=== PATIENT | female | born 1970 | race Caucasian/White ===

== ENCOUNTER → 2018-02-05 | Outpatient (CLI) | payer BC ==
--- NOTE | 2018-02-05 17:58 | Diagnostic Imaging Report ---
PROCEDURE:X-RAY MODIFIED BARIUM SWALLOW COMPARISON:None. INDICATIONS:THROAT CANCER, TROUBLE SWALLOWING THICK FOODS, GERD DISCUSSION:Fluoroscopic examination was performed in conjunction with speech pathology, during swallowing of a variety of thin and thick liquid consistencies. CONCLUSION:No penetration or aspiration. Please see the report from speech pathology for complete details. Dictated by: Usman Longoria M.D. on 02/05/2018 at 18:01 Electronically approved by: Usman Longoria M.D. on 02/05/2018 at 18:01
== END ==
LOC: DX 09:41
PROVIDERS: ATTEND Otolaryngology
DX: R05 Cough (principal); R49.0 Dysphonia
CPT/HCPCS: 74230

== ENCOUNTER → 2018-04-14 | Day surgery (SDC) | payer BC ==
[2018-04-10 11:25] LABS: BASOPHILS # (AUTO) 0.1 (0.0-0.1); BASOPHILS % 0.8 % (0.0-1.0); EOSINOPHILS # (AUTO) 0.1 (0.0-0.4); EOSINOPHILS % 1.1 % (0.0-6.0); HEMATOCRIT 42.1 % (34.2-44.1); HEMOGLOBIN 13.7 g/dL (12.0-16.0); LYMPHOCYTES # (AUTO) 4.3 (1.0-3.2); MEAN CORPUSCULAR HEMOGLOBIN 31.5 pg (28-32); MEAN CORPUSCULAR HGB CONC 32.5 g/dL (31-35); MEAN CORPUSCULAR VOLUME 96.8 fL (81-99); MONOCYTES # (AUTO) 1.3 (0.2-0.8); MONOCYTES % 10.7 % (4.4-11.3); NEUTROPHILS # (AUTO) 5.8 (2.1-6.9); PLATELET COUNT 364 x10e3/uL (140-360); RED BLOOD COUNT 4.35 x10e6/uL (3.6-5.1); RED CELL DISTRIBUTION WIDTH 15.8 % (11.7-14.4)
--- NOTE | 2018-04-10 11:57 | Diagnostic Imaging Report ---
PROCEDURE: Frontal and lateral views of the chest. COMPARISON: None. INDICATIONS: PREOPERATIVE CHEST XRAY FOR VOCAL CHORD BIOPSY FINDINGS: Lines/tubes: None. Lungs: The lungs are well inflated to. 6 mm nodular density projecting in the right lower lung on the frontal view. There is no evidence of consolidation or pulmonary edema. Pleura: There is no pleural effusion or pneumothorax. Heart and mediastinum: Cardiac silhouette is unremarkable. Pulmonary vasculature is normal. Bones: No acute bony abnormality. Multiple old healed left rib fractures. IMPRESSION: 1. No acute cardiopulmonary abnormalities. 2. 6 mm nodular density projecting in the right lower lung on the frontal view. Recommend chest CT for further evaluation. Michael Frazier M.D. Dictated by: Michael Frazier M.D. on 04/10/2018 at 12:02 Electronically approved by: Michael Frazier M.D. on 04/10/2018 at 12:02
[~2018-04-14] MED LIST: BUSPIRONE PO; DESFLURANE 240 ML BTL INH ONE; DEXAMETHASONE SOD PHOS INJ 4 MG/ML VIAL ONE; DIAZEPAM5 MG PO; FENTANYL CITRATE/PF 100MCG/2 ML INJ ONE; LEXAPRO20 MG PO; LIDOCAINE HCL 2% LOCAL INJ 5 ML SDV VIAL INJ ONE; MIDAZOLAM HCL 2 MG/2 ML VIAL ONE; ONDANSETRON HCL INJ 2 MG/ML VIAL ONE; OXYMETAZOLINE HCL 0.05% NAS 1 SPRAY BTL ONE; PROPOFOL IV EMULSION 10 MG/ML 20 ML VIAL ONE; SUCCINYLCHOLINE 200 MG/10 ML SYR ONE
--- NOTE | 2018-04-14 12:56 | Operative Report ---
DATE OF PROCEDURE: April 14, 2018 PREOPERATIVE DIAGNOSIS: Right true vocal cord mass. POSTOPERATIVE DIAGNOSIS: Right true vocal cord mass. PROCEDURE: Direct operative laryngoscopy, suspension microlaryngoscopy with operating microscope, excision of right true vocal cord mass. SIGNIFICANT FINDINGS: Soft tissue mass on the superior lateral aspect of the right true vocal cord mucosa at junction with ventricle. The character of the mass appeared to be diffuse edematous mucosa. LEGAL DOCUMENT ASSISTANT: None. ANESTHESIA: General endotracheal tube anesthesia. SPECIMENS REMOVED: The right true vocal cord mass. ESTIMATED BLOOD LOSS: Less than 1 mL. COMPLICATIONS: None. INDICATIONS: Patient is a 47-year-old white female with 8 months' history of dysphagia, cough, sore throat, odynophagia, globus sensation, postnasal drip, throat clearing, hoarseness, dyspnea and fever. She reports a 50-pound weight loss due to dysphagia? There are no neck masses noted by the patient. She has been a heavy smoker until December of 2017 when she quit. 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 Modified barium swallow testing was normal. Flexible fiberoptic nasal laryngoscopy revealed a mass on the superior surface of the right true vocal cord mucosa. She is scheduled for direct operative laryngoscopy, suspension microlaryngoscopy with operating microscope and excision of right true vocal cord mass under general anesthesia. Risks and complications of the procedure were thoroughly discussed with patient and they include infection, bleeding, scarring, failure to improve, need for additional operations, damage to the gums, tongue, lips and teeth, permanent worse voice, chronic pain, damage to the intraoral and throat structures, need for blood transfusions, damage to surrounding nerves, blood vessels and muscles, possibility of malignancy and need for further treatment. She fully understands and gives consent. PROCEDURE: Patient was taken to the operating room and placed supine on the operating table where general anesthesia was achieved through orotracheal intubation. The patient is edentulous in the upper teeth but she has teeth on the lower teeth. Moistened gauze was placed over the upper gingiva. The Kike laryngoscope was then used to visualize the intraoral structures which appeared to be free of any tumors or masses. Further inspection of the epiglottis, the vallecula, base of tongue also revealed normal findings. The hypopharynx and larynx were visualized. Hypopharynx appeared to be normal. The larynx was then visualized and the Kike laryngoscope was then placed in suspension on De Leon stand. The left true vocal cord appeared to be normal. There was a soft tissue mass on the superior lateral aspect of the right true vocal cord mucosa at the junction with the ventricle. The character of the mass appeared to be edematous mucosa. This was excised at its base with Bellucci scissors and sent for permanent section analysis. Hemostasis was obtained with cottonoid pledgets soaked with Afrin. Following removal of the cottonoid pledgets, further inspection of the larynx revealed to be clear with no evidence of masses, ulcers or tumors. The Kike laryngoscope was then taken out of suspension and was removed without difficulty revealing no trauma to the teeth on the lower aspect or the gingiva in the upper aspect. Patient was awakened in the operating room, extubated and taken to recovery in good condition. Job#: [id number] MILLA DUGAN
== END | disposition home or self-care (01) ==
LOC: OR 09:30
PROVIDERS: ATTEND Otolaryngology
DX: J35.8 Other chronic diseases of tonsils and adenoids (principal); R63.4 Abnormal weight loss; R13.10 Dysphagia, unspecified; J44.9 Chronic obstructive pulmonary disease, unspecified; K21.9 Gastro-esophageal reflux disease without esophagitis; F32.9 Major depressive disorder, single episode, unspecified; F41.9 Anxiety disorder, unspecified; Z01.810 Encounter for preprocedural cardiovascular examination; Z01.812 Encounter for preprocedural laboratory examination; Z01.818 Encounter for other preprocedural examination; Z87.891 Personal history of nicotine dependence
CPT/HCPCS: 31541; 36415; 71046; 81025; 85025; 88305; 93005; J1100; J2001; J2250; J2405

== ENCOUNTER 2019-11-06 16:22 | Emergency (ER) | payer BC, OTHER ==
[~2019-11-06] VITALS: Ht 175.3 cm; Wt 78.9 kg
[~2019-11-06 16:22] MED LIST changes: -DESFLURANE 240 ML BTL INH ONE; -DEXAMETHASONE SOD PHOS INJ 4 MG/ML VIAL ONE; -FENTANYL CITRATE/PF 100MCG/2 ML INJ ONE; -LIDOCAINE HCL 2% LOCAL INJ 5 ML SDV VIAL INJ ONE; -MIDAZOLAM HCL 2 MG/2 ML VIAL ONE; -ONDANSETRON HCL INJ 2 MG/ML VIAL ONE; -OXYMETAZOLINE HCL 0.05% NAS 1 SPRAY BTL ONE; -PROPOFOL IV EMULSION 10 MG/ML 20 ML VIAL ONE; -SUCCINYLCHOLINE 200 MG/10 ML SYR ONE
[2019-11-06] MEDS ORDERED: FUROSEMIDE40 MG PO (17:01)
[2019-11-06] MEDS ORDERED: SODIUM CHLORIDE 0.9% 1000ML 1,000 ML IV STA (17:34)
[2019-11-06] MEDS ORDERED: ONDANSETRON HCL INJ 2MG/ML 2ML 2 MG/ML VIAL IV STA (17:34)
[2019-11-06] MEDS ORDERED: PANTOPRAZOLE 40 MG 10ML VIAL IV STA (17:34)
[2019-11-06 17:58] LABS: BASOPHILS # (AUTO) 0.1 (0.0-0.1); BASOPHILS % 0.5 % (0.0-1.0); EOSINOPHILS # (AUTO) 0.1 (0.0-0.4); EOSINOPHILS % 0.4 % (0.0-6.0); HEMATOCRIT 41.2 % (34.2-44.1); HEMOGLOBIN 13.8 g/dL (12.0-16.0); LYMPHOCYTES # (AUTO) 4.5 (1.0-3.2); LYMPHOCYTES % 34.2 % (18.0-39.1); MEAN CORPUSCULAR HEMOGLOBIN 32.4 pg (28-32); MEAN CORPUSCULAR HGB CONC 33.5 g/dL (31-35); MEAN CORPUSCULAR VOLUME 96.7 fL (81-99); MONOCYTES # (AUTO) 1.4 (0.2-0.8); MONOCYTES % 10.4 % (4.4-11.3); NEUTROPHILS # (AUTO) 7.1 (2.1-6.9); NEUTROPHILS % 54.2 % (38.7-80.0); PLATELET COUNT 288 x10e3/uL (140-360); RED BLOOD COUNT 4.26 x10e6/uL (3.6-5.1); RED CELL DISTRIBUTION WIDTH 13.5 % (11.7-14.4)
[2019-11-06] MEDS ORDERED: ASPIRIN 81 MG CHEW TAB PO ONE (18:00)
[2019-11-06 18:18] LABS: ALANINE AMINOTRANSFERASE 19 IU/L (0-55); ALBUMIN 3.8 g/dL (3.5-5.0); ALBUMIN/GLOBULIN RATIO 1.4 (0.8-2.0); ALKALINE PHOSPHATASE 60 IU/L (40-150); ANION GAP 10.9 mmol/L (8-16); BLOOD UREA NITROGEN 10 mg/dL (7-26); BUN/CREATININE RATIO 13 (6-25); CALCIUM 10.1 mg/dL (8.4-10.2); CARBON DIOXIDE 27 mmol/L (22-29); CHLORIDE 104 mmol/L (98-107); CREATINE KINASE 35 IU/L (29-168); CREATININE, SERUM 0.76 mg/dL (0.57-1.11); EST GLOMERULAR FILTRATION RATE > 60 ML/MIN (60-); GLUCOSE 86 mg/dL (74-118); POTASSIUM 3.9 mmol/L (3.5-5.1); SODIUM 138 mmol/L (136-145)
[2019-11-06 18:22] LABS: INR 1.05; PROTHROMBIN TIME 14.4 seconds (11.9-14.5)
[2019-11-06 18:23] LABS: PARTIAL THROMBOPLASTIN TIME 25.6 seconds (23.8-35.5)
[2019-11-06 18:54] LABS: COLOR,URINE YELLOW (YELLOW)
[2019-11-06 18:55] LABS: BILIRUBIN,URINE SMALL (NEGATIVE); CLARITY,URINE SL CLOUDY (CLEAR); KETONES,URINE 2+ (NEGATIVE); LEUKOCYTE ESTERASE ,URINE NEGATIVE (NEGATIVE); NITRITE,URINE NEGATIVE (NEGATIVE); PROTEIN,URINE DIPSTICK 3+ (NEGATIVE); URINE UROBILINOGEN 2 mg/dL (0.2 - 1)
--- NOTE | 2019-11-06 18:59 | Diagnostic Imaging Report ---
EXAMINATION: ABDOMEN ACUTE SERIES W/PA CXR INDICATION: ^VOMITING ^[id number] ^[id number]. COMPARISON: None FINDINGS: AP view TUBES and LINES: None. LUNGS: Lungs are well inflated. There is no evidence of pneumonia or pulmonary edema. There is a small right lung base calcified granuloma. PLEURA: No pleural effusion or pneumothorax. HEART AND MEDIASTINUM: The cardiomediastinal silhouette is unremarkable. BONES AND SOFT TISSUES: No acute osseous lesion. Old fracture deformity of the left ribs. Soft tissues are unremarkable. UPPER ABDOMEN: No free air under the diaphragm. IMPRESSION: No acute thoracic abnormality. Signed by: Fritz Walsh MD on 11/06/2019 6:57 PM
[2019-11-06 19:02] LABS: BACTERIA,URINE FEW /HPF; EPITHELIAL CELLS,URINE MODERATE /LPF
[2019-11-06 20:58] LABS: LYMPHOCYTES % (MANUAL) 31 % (19-48); MONOCYTES % (MANUAL) 5 % (3.4-9.0); NEUTROPHILS % (MANUAL) 56 % (40-74); PLATELET ESTIMATE ADEQUATE; PLATELET MORPHOLOGY COMMENT NORMAL; RBC MORPHOLOGY COMMENT NORMAL
[2019-11-06] MEDS ORDERED: HYDROCODONE/APAP 5MG-325MG TAB PO ONE (21:45)
== END 2019-11-06 22:02 | disposition home or self-care (01) ==
LOC: ER 16:22
DX: R10.84 Generalized abdominal pain (principal); R11.2 Nausea with vomiting, unspecified; K58.9 Irritable bowel syndrome, unspecified; F41.9 Anxiety disorder, unspecified
CPT/HCPCS: 36415; 74022; 80053; 81001; 82550; 82553; 83735; 84484; 85025; 85610; 85730; 87086; 93005; 99284; C9113; J2405; J7030

== ENCOUNTER 2024-11-09 10:10 | Observation (INO) | payer OTHER ==
[~2024-11-09] VITALS: Ht 175.3 cm; Wt 58.5 kg
[~2024-11-09 10:10] MED LIST changes: +ASPIRIN81 MG PO; +BUSPIRONE HCL30 MG PO; +DICLOFENAC POTA50 MG PO; +FUROSEMIDE40 MG PO; +LIDOCAINE PATCH TOP; +METHOCARBAMOL750 MG PO; +MONTELUKAST SOD10 MG PO; +NEURONTIN300 MG PO; +ONDANSETRON ODT8 MG PO; +OXYCODONE HCL E10 MG PO; +OXYCODONE HCL10 MG PO; +TORSEMIDE20 MG PO; +TYLENOL ARTHRITIS PO; +VALACYCLOVIR500 MG PO; +WELLBUTRIN SR100 MG PO
[2024-11-09] MEDS: DEXAMETHASONE SOD PHOS 10 MG/1 ML VIAL ONE (10:38)
[2024-11-09] MEDS: GABAPENTIN 300 MG CAP ONE (10:39)
[2024-11-09] MEDS: CELECOXIB 200 MG CAP ONE (10:39)
[2024-11-09] MEDS: CEFAZOLIN SODIUM 0 GM ONE (10:39)
[2024-11-09] MEDS: SODIUM CHLORIDE 0.9% 250ML 250 ML ONE (10:40)
[2024-11-09] MEDS: Vancomycin IV 1 GM VIAL ONE (10:40)
[2024-11-09] MEDS: LACTATED RINGER'S 1,000 ML ONE (10:40)
[2024-11-09] MEDS ORDERED: KETAMINE 50MG/5ML SYR ONE (10:46)
[2024-11-09] MEDS ORDERED: MIDAZOLAM HCL 2 MG/2 ML VIAL ONE (10:47)
[2024-11-09] MEDS ORDERED: PROPOFOL IV EMULSION 10 MG/ML 20 ML VIAL ONE (10:47)
[2024-11-09] MEDS ORDERED: FENTANYL CITRATE/PF 100MCG/2 ML INJ ONE (10:47)
[2024-11-09] MEDS ORDERED: LIDOCAINE HCL 2% LOCAL INJ 5 ML SDV VIAL INJ ONE (10:47)
[2024-11-09] MEDS ORDERED: ONDANSETRON HCL INJ 2MG/ML 2ML 2 MG/ML VIAL ONE (11:05)
[2024-11-09] MEDS ORDERED: EPINEPHRINE HCL 1:1000 1ML 1 MG/ML AMP ONE (11:07)
[2024-11-09] MEDS ORDERED: SODIUM CHLORIDE 0.9% INJ 10 ML VIAL ONE (11:07)
[2024-11-09] MEDS ORDERED: HYDROCODONE/APAP 5MG-325MG TAB PO PRN (14:30)
[2024-11-09] MEDS ORDERED: DOCUSATE SODIUM 100 MG CAP PO PRN (14:30)
[2024-11-09] MEDS ORDERED: ACETAMINOPHEN 650 MG SUPP PR PRN (14:30)
[2024-11-09] MEDS ORDERED: DIPHENHYDRAMINE HCL INJ 50 MG/ML VIAL IV PRN (14:30)
[2024-11-09] MEDS ORDERED: HYDROMORPHONE 1MG/1ML INJ ONE (14:46)
[2024-11-09] MEDS: MEPERIDINE HCL INJ 25 MG/ML VIAL ONE (14:50)
[2024-11-09] MEDS: ROPIVACAINE/EPI/CLONIDINE/KET 50 ML SYRINGE INJ ONE (16:04)
[2024-11-09] MEDS: CEFAZOLIN SODIUM 2 GM ONE (16:04)
[2024-11-09] MEDS: SODIUM CHLORIDE 0.9% 1000ML 1,000 ML IV SCH (16:31)
[2024-11-09] MEDS: CELECOXIB 200 MG CAP PO SCH (16:31)
[2024-11-09] MEDS: OXYCODONE HCL 10 MG TAB CR PO PRN (16:31)
[2024-11-09 16:35] VITALS: BP 105/86; PULSE 101; RESP 12; TEMP 98.4; O2SAT 100
[2024-11-09 17:19] VITALS: PULSE 102; RESP 17; O2SAT 94
[2024-11-09] MEDS: HYDROCODONE/APAP 7.5MG-325MG 1 EA TAB PO PRN (17:53)
[2024-11-09 18:08] VITALS: BP 105/86; PULSE 102; RESP 17; TEMP 98.4; O2SAT 94
[2024-11-09 19:25] VITALS: PULSE 84; RESP 18; O2SAT 95
[2024-11-09 20:00] VITALS: BP 101/67; PULSE 99; RESP 16; TEMP 98.6; O2SAT 100
[2024-11-09] MEDS ORDERED: BISACODYL 10 MG SUPP PR PRN (20:45)
[2024-11-09] MEDS ORDERED: ALBUTEROL/IPRATROPIUM 3 ML NEB NEB PRN (20:45)
[2024-11-09] MEDS ORDERED: POLYETHYLENE GLYCOL 3350 17 GM PACK PO PRN (20:45)
[2024-11-09 21:00] VITALS: BP 101/67; PULSE 99; RESP 16; TEMP 98.6; O2SAT 100
[2024-11-09] MEDS: DIAZEPAM 5 MG TAB PO PRN (22:13)
[2024-11-09] MEDS: METHOCARBAMOL 750 MG TAB PO SCH (22:15)
[2024-11-09] MEDS: ZOLPIDEM TARTRATE 5 MG TAB PO PRN (22:15)
[2024-11-09] MEDS: MONTELUKAST SODIUM 10 MG TAB PO SCH (22:16)
[2024-11-09] MEDS: ASPIRIN 325 MG TAB PO SCH (22:16)
[2024-11-09] MEDS ORDERED: ASPIRIN 325 MG TAB PO SCH (23:00)
[2024-11-10] VITALS: BP 106/65; PULSE 101; RESP 18; TEMP 99.3; O2SAT 100
[2024-11-10 04:00] VITALS: BP 94/62; PULSE 96; RESP 19; TEMP 98.2; O2SAT 100
[2024-11-10 05:16] LABS: BASOPHILS # (AUTO) 0.1 (0.0-0.1); BASOPHILS % 0.6 % (0.0-1.0); EOSINOPHILS # (AUTO) 0.3 (0.0-0.4); EOSINOPHILS % 2.8 % (0.0-6.0); HEMATOCRIT 32.9 % (34.2-44.1); LYMPHOCYTES # (AUTO) 1.5 (1.0-3.2); LYMPHOCYTES % 12.8 % (18.0-39.1); MEAN CORPUSCULAR HEMOGLOBIN 29.8 pg (28-32); MEAN CORPUSCULAR HGB CONC 33.4 g/dL (31-35); MEAN CORPUSCULAR VOLUME 89.2 fL (81-99); MONOCYTES # (AUTO) 0.6 (0.2-0.8); MONOCYTES % 5.2 % (4.4-11.3); NEUTROPHILS # (AUTO) 8.8 (2.1-6.9); NEUTROPHILS % 77.2 % (38.7-80.0); PLATELET COUNT 222 x10e3/uL (140-360); RED BLOOD COUNT 3.69 x10e6/uL (3.6-5.1); RED CELL DISTRIBUTION WIDTH 13.3 % (11.7-14.4); WHITE BLOOD COUNT 11.45 x10e3/uL (4.8-10.8)
[2024-11-10 05:41] LABS: ALBUMIN/GLOBULIN RATIO 0.6 (0.8-2.0); ANION GAP 10.8 mmol/L (8-16); BILIRUBIN,TOTAL 0.4 mg/dL (0.2-1.2); CALCIUM 7.9 mg/dL (8.4-10.2); CREATININE, SERUM 0.59 mg/dL (0.57-1.11); MAGNESIUM 1.4 MG/DL (1.3-2.1); POTASSIUM 3.8 mmol/L (3.5-5.1); TOTAL PROTEIN 5.4 g/dL (6.5-8.1)
[2024-11-10] MEDS: ONDANSETRON HCL INJ 2MG/ML 2ML 2 MG/ML VIAL IV PRN (07:24)
[2024-11-10 08:00] VITALS: BP 104/67; PULSE 92; RESP 20; TEMP 98.3; O2SAT 100
[2024-11-10 09:00] VITALS: BP 104/67; PULSE 92; RESP 20; TEMP 98.3; O2SAT 100
[2024-11-10] MEDS: BUPROPION HCL 100 MG TAB PO SCH (09:28)
[2024-11-10] MEDS: ESCITALOPRAM OXALATE 10 MG TAB PO SCH (09:28)
[2024-11-10] MEDS: SENNOSIDES 8.6 MG TAB PO SCH (09:31)
[2024-11-10] MEDS: NICOTINE 14 MG/EA PATCH TOP SCH (09:32)
[2024-11-10] MEDS: DOCUSATE SODIUM 100 MG CAP PO SCH (09:35)
[2024-11-10 09:45] VITALS: PULSE 94; RESP 18; O2SAT 96
[2024-11-10 12:00] VITALS: BP 103/74; PULSE 95; RESP 20; TEMP 98.4; O2SAT 100
[2024-11-10] MEDS ORDERED: ACETAMINOPHEN 1000 MG/100 ML IV PRN (14:30)
== END 2024-11-10 15:32 | disposition home health service (06) ==
LOC: OR 10:10 → PACU V 14:27 → MED/SURG 15:52
PROVIDERS: ADMIT Specialist; ATTEND Specialist
DX: T84.031A Mechanical loosening of internal left hip prosthetic joint, initial encounter (principal); Y83.8 Other surgical procedures as the cause of abnormal reaction of the patient, or of later complication, without mention of misadventure at the time of the procedure; G89.29 Other chronic pain; M16.12 Unilateral primary osteoarthritis, left hip; R53.81 Other malaise; F17.210 Nicotine dependence, cigarettes, uncomplicated; R91.8 Other nonspecific abnormal finding of lung field; Z79.82 Long term (current) use of aspirin; Z79.899 Other long term (current) drug therapy
CPT/HCPCS: 27134; 36415; 72170; 80053; 83735; 85025; 86850; 86900; 87071; 87075; 87205; 94799 ×2; 97116 ×2; 97162; 97530 ×2; C1713 ×2; C1776; G0378 ×2; J0171; J0690 ×2; J1100; J2003; J2175; J2250; J2405 ×2; J2704; J3010; J3370; J7030 ×2; J7050; J7121; J1171

== ENCOUNTER 2025-01-02 23:24 | Observation (INO) | payer OTHER ==
[~2025-01-02] VITALS: Ht 175.3 cm; Wt 56.7 kg
[2025-01-03] VITALS (7 sets, daily range): BP systolic 115–151; BP diastolic 77–95; PULSE 84–92; RESP 16–22; TEMP 98.4–99.2; O2SAT 92–98
[2025-01-03] MEDS: HYDROCODONE/APAP 7.5MG-325MG 1 EA TAB PO PRN ×2 (01:51→20:01)
[2025-01-03] MEDS ORDERED: OXYCONTIN10 MG PO (09:48)
[2025-01-03] MEDS ORDERED: OXYCODONE HCL 10 MG TAB CR PO PRN (11:15)
[2025-01-03] MEDS ORDERED: POTASSIUM CHLORIDE 20 MEQ TAB CR PO PRN (11:45)
[2025-01-03] MEDS ORDERED: SIMETHICONE 80 MG CHEW PO PRN (11:45)
[2025-01-03] MEDS ORDERED: BENZONATATE 100 MG CAP PO PRN (11:45)
[2025-01-03] MEDS ORDERED: ALBUTEROL/IPRATROPIUM 3 ML NEB NEB PRN (11:45)
[2025-01-03] MEDS ORDERED: DOCUSATE SODIUM 100 MG CAP PO PRN (11:45)
[2025-01-03] MEDS ORDERED: HYDRALAZINE HCL 20 MG/ML VIAL IV PRN (11:45)
[2025-01-03] MEDS ORDERED: DIPHENHYDRAMINE HCL 25 MG CAP PO PRN (11:45)
[2025-01-03] MEDS ORDERED: LIDOCAINE 4% PATCH TP PRN (11:45)
[2025-01-03] MEDS ORDERED: DEXTROSE 50% SYRINGE 50 ML IV PRN (11:45)
[2025-01-03 12:31] LABS: BASOPHILS # (AUTO) 0.1 (0.0-0.1); BASOPHILS % 0.6 % (0.0-1.0); EOSINOPHILS # (AUTO) 0.2 (0.0-0.4); EOSINOPHILS % 1.2 % (0.0-6.0); HEMATOCRIT 35.3 % (34.2-44.1); HEMOGLOBIN 11.6 g/dL (12.0-16.0); LYMPHOCYTES # (AUTO) 3.7 (1.0-3.2); LYMPHOCYTES % 25.7 % (18.0-39.1); MEAN CORPUSCULAR HEMOGLOBIN 31.9 pg (28-32); MEAN CORPUSCULAR HGB CONC 32.9 g/dL (31-35); MONOCYTES # (AUTO) 1.5 (0.2-0.8); MONOCYTES % 10.7 % (4.4-11.3); NEUTROPHILS # (AUTO) 8.7 (2.1-6.9); NEUTROPHILS % 61.5 % (38.7-80.0); PLATELET COUNT 327 x10e3/uL (140-360); RED BLOOD COUNT 3.64 x10e6/uL (3.6-5.1); RED CELL DISTRIBUTION WIDTH 14.7 % (11.7-14.4); WHITE BLOOD COUNT 14.18 x10e3/uL (4.8-10.8)
[2025-01-03 12:51] LABS: CALCIUM 10.4 mg/dL (8.4-10.2); CREATININE, SERUM 0.61 mg/dL (0.57-1.11)
[2025-01-03] MEDS: ONDANSETRON HCL INJ 2MG/ML 2ML 2 MG/ML VIAL IV PRN (13:10)
[2025-01-03] MEDS: HYDROMORPHONE 1MG/1ML INJ IV PRN (13:11)
[2025-01-03] MEDS ORDERED: HYDROXYZINE HCL25 MG PO (16:07)
[2025-01-03] MEDS ORDERED: BUSPIRONE HCL 10 MG TABLET PO SCH (17:00)
[2025-01-03] MEDS ORDERED: ESCITALOPRAM OXALATE 10 MG TAB PO SCH (17:00)
[2025-01-03] MEDS ORDERED: SEVOFLURANE INHAL SOLN 250 ML PEN BTL ONE (17:04)
[2025-01-03] MEDS ORDERED: HYDROXYZINE HCL 25 MG TAB PO PRN (17:15)
[2025-01-03] MEDS: ENOXAPARIN SOD INJ 40 MG/0.4 ML SYR SC SCH (17:38)
[2025-01-03] MEDS: MONTELUKAST SODIUM 10 MG TAB PO SCH (21:00)
[2025-01-03] MEDS: BUSPIRONE HCL 10 MG TABLET PO SCH (21:00)
[2025-01-03] MEDS: ESCITALOPRAM OXALATE 10 MG TAB PO SCH (21:00)
[2025-01-04] VITALS (8 sets, daily range): BP systolic 117–127; BP diastolic 77–89; PULSE 83–98; RESP 16–18; TEMP 98.5–99.2; O2SAT 94–100
[2025-01-04] MEDS: ACETAMINOPHEN 325 MG TAB PO PRN (00:30)
[2025-01-04] MEDS: MELATONIN 5 MG TABLET PO PRN (00:30)
[2025-01-04] MEDS: ONDANSETRON HCL INJ 2MG/ML 2ML 2 MG/ML VIAL IV PRN ×2 (01:45→21:45)
[2025-01-04] MEDS: PANTOPRAZOLE SOD 40 MG TABEC PO SCH (07:30)
[2025-01-04] MEDS: BUPROPION HCL 100 MG TAB PO SCH (08:16)
[2025-01-04 10:24] LABS: BASOPHILS # (AUTO) 0.1 (0.0-0.1); BASOPHILS % 0.6 % (0.0-1.0); EOSINOPHILS # (AUTO) 0.1 (0.0-0.4); EOSINOPHILS % 0.9 % (0.0-6.0); HEMATOCRIT 36.9 % (34.2-44.1); HEMOGLOBIN 11.9 g/dL (12.0-16.0); LYMPHOCYTES # (AUTO) 2.8 (1.0-3.2); LYMPHOCYTES % 20.5 % (18.0-39.1); MEAN CORPUSCULAR HEMOGLOBIN 31.8 pg (28-32); MEAN CORPUSCULAR HGB CONC 32.2 g/dL (31-35); MEAN CORPUSCULAR VOLUME 98.7 fL (81-99); MONOCYTES # (AUTO) 1.5 (0.2-0.8); MONOCYTES % 10.6 % (4.4-11.3); NEUTROPHILS # (AUTO) 9.2 (2.1-6.9); PLATELET COUNT 352 x10e3/uL (140-360); RED BLOOD COUNT 3.74 x10e6/uL (3.6-5.1); RED CELL DISTRIBUTION WIDTH 14.5 % (11.7-14.4); WHITE BLOOD COUNT 13.69 x10e3/uL (4.8-10.8)
[2025-01-04 10:58] LABS: ALBUMIN 3.4 g/dL (3.5-5.0); ALBUMIN/GLOBULIN RATIO 1.3 (0.8-2.0); ANION GAP 12.3 mmol/L (8-16); BILIRUBIN,TOTAL 0.2 mg/dL (0.2-1.2); CALCIUM 10.7 mg/dL (8.4-10.2); CREATININE, SERUM 0.6 mg/dL (0.57-1.11); POTASSIUM 4.3 mmol/L (3.5-5.1); TOTAL PROTEIN 6.1 g/dL (6.5-8.1)
[2025-01-04] MEDS ORDERED: PROPOFOL IV EMULSION 10 MG/ML 20 ML VIAL ONE (11:34)
[2025-01-04] MEDS ORDERED: LIDOCAINE HCL 2% LOCAL INJ 5 ML SDV VIAL INJ ONE (11:34)
[2025-01-04] MEDS ORDERED: ROCURONIUM BROMIDE 1 ML IV ONE ×2 (11:34→12:46)
[2025-01-04] MEDS ORDERED: SUGAMMADEX SODIUM 200 MG/2 ML VIAL IV ONE (11:35)
[2025-01-04] MEDS ORDERED: ONDANSETRON HCL INJ 2MG/ML 2ML 2 MG/ML VIAL ONE (11:35)
[2025-01-04] MEDS ORDERED: FENTANYL CITRATE/PF 100MCG/2 ML INJ ONE (11:35)
[2025-01-04] MEDS ORDERED: DEXAMETHASONE SOD PHOS INJ 4 MG/ML SDV ONE (11:35)
[2025-01-04] MEDS ORDERED: MIDAZOLAM HCL 2 MG/2 ML VIAL ONE (11:35)
[2025-01-04] MEDS ORDERED: HYDROMORPHONE 2MG/ML ONE (12:44)
[2025-01-04] MEDS ORDERED: OXYCODONE HCL IR 5 MG TAB PO PRN (13:00)
[2025-01-04] MEDS: SODIUM CHLORIDE 0.9% 1000ML 1,000 ML IV SCH (13:00)
[2025-01-04] MEDS ORDERED: DIPHENHYDRAMINE HCL INJ 50 MG/ML VIAL IV PRN (13:00)
[2025-01-04] MEDS ORDERED: DOCUSATE SODIUM 100 MG CAP PO PRN (13:00)
[2025-01-04] MEDS: ROPIVACAINE/EPI/CLONIDINE/KET 50 ML SYRINGE INJ ONE (16:07)
[2025-01-04] MEDS: CELECOXIB 200 MG CAP PO SCH (17:51)
[2025-01-04] MEDS: ASPIRIN 325 MG TAB PO SCH (17:51)
[2025-01-04] MEDS: HYDROCODONE/APAP 5MG-325MG TAB PO PRN (20:20)
[2025-01-05 01:14] VITALS: BP 111/77; PULSE 88; RESP 18; TEMP 99; O2SAT 97
[2025-01-05 04:25] VITALS: BP 124/75; PULSE 88; RESP 16; TEMP 99.3; O2SAT 97
[2025-01-05 06:50] VITALS: PULSE 86; RESP 18; O2SAT 96
[2025-01-05 07:37] VITALS: BP 115/80; PULSE 91; RESP 19; TEMP 98.2; O2SAT 100
[2025-01-05 07:52] LABS: BASOPHILS % 0.2 % (0.0-1.0); HEMATOCRIT 32.1 % (34.2-44.1); HEMOGLOBIN 10.5 g/dL (12.0-16.0); LYMPHOCYTES # (AUTO) 3.5 (1.0-3.2); LYMPHOCYTES % 17.1 % (18.0-39.1); MEAN CORPUSCULAR HEMOGLOBIN 31.9 pg (28-32); MEAN CORPUSCULAR HGB CONC 32.7 g/dL (31-35); MEAN CORPUSCULAR VOLUME 97.6 fL (81-99); MONOCYTES # (AUTO) 2.4 (0.2-0.8); MONOCYTES % 11.5 % (4.4-11.3); NEUTROPHILS # (AUTO) 14.5 (2.1-6.9); NEUTROPHILS % 70.6 % (38.7-80.0); PLATELET COUNT 314 x10e3/uL (140-360); RED BLOOD COUNT 3.29 x10e6/uL (3.6-5.1); RED CELL DISTRIBUTION WIDTH 13.7 % (11.7-14.4); WHITE BLOOD COUNT 20.46 x10e3/uL (4.8-10.8)
[2025-01-05 08:21] LABS: ALBUMIN 3.1 g/dL (3.5-5.0); ALBUMIN/GLOBULIN RATIO 1.1 (0.8-2.0); ANION GAP 11.1 mmol/L (8-16); BILIRUBIN,TOTAL 0.3 mg/dL (0.2-1.2); CALCIUM 10.6 mg/dL (8.4-10.2); CREATININE, SERUM 0.62 mg/dL (0.57-1.11); MAGNESIUM 1.8 MG/DL (1.3-2.1); POTASSIUM 4.1 mmol/L (3.5-5.1); TOTAL PROTEIN 5.8 g/dL (6.5-8.1)
[2025-01-05 09:31] VITALS: BP 115/80; PULSE 91; RESP 19; TEMP 98.2; O2SAT 100
[2025-01-05 09:31] LABS: LYMPHOCYTES % (MANUAL) 19 % (19-48); MONOCYTES % (MANUAL) 20 % (3.4-9.0); NEUTROPHILS % (MANUAL) 61 % (40-74); PLATELET ESTIMATE ADEQUATE; PLATELET MORPHOLOGY COMMENT NORMAL
[2025-01-05 11:27] VITALS: BP 115/83; PULSE 80; RESP 17; TEMP 98.2; O2SAT 100
[2025-01-05] MEDS: HYDROCODONE/APAP 7.5MG-325MG 1 EA TAB PO PRN (12:30)
[2025-01-05] MEDS ORDERED: ACETAMINOPHEN 1000 MG/100 ML IV PRN (13:00)
== END 2025-01-05 13:36 | disposition home health service (06) ==
LOC: MED/SURG 01-03 01:12
PROVIDERS: ADMIT Specialist; ATTEND Specialist
DX: T84.021A Dislocation of internal left hip prosthesis, initial encounter (principal); G89.4 Chronic pain syndrome; F41.8 Other specified anxiety disorders; Z72.0 Tobacco use
CPT/HCPCS: 27138; 27299; 36415 ×3; 72170; 73502; 80048; 80053 ×2; 83735; 85025 ×3; 86850; 86900; 94799 ×2; 97116; 97162; 97530 ×2; 99252; G0378 ×3; J0690 ×2; J1100; J1171 ×4; J1650 ×2; J2003; J2405 ×2; J2470; J2704; J3010; J2250